=== PATIENT | male | born 1970 | race Caucasian/White ===

== ENCOUNTER 2016-11-06 15:16 | Outpatient (CLI) | payer OTHER | END 2016-11-06 15:17 | disposition home or self-care (01) | DX: G47.30 Sleep apnea, unspecified (principal); R06.83 Snoring; G47.10 Hypersomnia, unspecified ==

== ENCOUNTER 2016-11-12 19:28 | Outpatient (CLI) | payer OTHER | END 2016-11-12 19:29 | disposition home or self-care (01) | DX: G47.30 Sleep apnea, unspecified (principal) ==

== ENCOUNTER 2016-11-28 08:51 | Outpatient (CLI) | payer OTHER | END 2016-11-28 08:52 | disposition home or self-care (01) | DX: G47.33 Obstructive sleep apnea (adult) (pediatric) (principal) ==

== ENCOUNTER 2018-03-27 22:10 | Emergency (ER) | payer OTHER ==
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
[2018-03-27] MEDS ORDERED: LIDOCAINE 2% 10 ML MDV SUBQ STA (22:55)
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
[2018-03-28 01:54] VITALS: BP 130/85
== END 2018-03-28 01:35 | disposition home or self-care (01) ==
LOC: ED 22:10
DX: S62.306B Unspecified fracture of fifth metacarpal bone, right hand, initial encounter for open fracture (principal); W22.09XA Striking against other stationary object, initial encounter; Y92.009 Unspecified place in unspecified non-institutional (private) residence as the place of occurrence of the external cause; F17.200 Nicotine dependence, unspecified, uncomplicated
CPT/HCPCS: 12001; 99283; 99284

== ENCOUNTER 2018-03-29 10:07 | Emergency (ER) | payer OTHER ==
[2018-03-29 10:21] VITALS: BP 137/86
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
== END 2018-03-29 11:53 | disposition home or self-care (01) ==
LOC: ED 10:07
DX: S92.351A Displaced fracture of fifth metatarsal bone, right foot, initial encounter for closed fracture (principal); W22.09XA Striking against other stationary object, initial encounter; Z85.048 Personal history of other malignant neoplasm of rectum, rectosigmoid junction, and anus; Z87.891 Personal history of nicotine dependence
CPT/HCPCS: 29125; 99283

== ENCOUNTER 2018-11-18 15:45 | Emergency (ER) | payer OTHER ==
[2018-11-18 15:53] VITALS: BP 120/76
--- NOTE | 2018-11-18 16:40 | ED Physician Documentation ---
PD HPI LOWER EXT INJURY - Stated complaint Stated Complaint: R KNEE PX - Chief complaint Chief Complaint: Ext Problem - History obtained from History obtained from: Patient - History of Present Illness PD HPI LOW EXT INJURY LOCATION: Right (He had a surgical procedure on his right knee done in [place] 3 with ago. The follow-up plan was unclear and he presents with increased pain in the sutures need to come out.) Review of Systems Constitutional: reports: Reviewed and negative Throat: reports: Reviewed and negative Cardiac: reports: Reviewed and negative PD PAST MEDICAL HISTORY - Past Medical History Respiratory: Asthma - Past Surgical History Past Surgical History: Yes Ortho: Other - Present Medications Home Medications: Ambulatory Orders Medication Instructions Recorded Confirmed Albuterol [Ventolin Hfa] 2 puffs INH Q4H PRN 10/02/13 10/02/13 Esomeprazole Magnesium [Nexium] 40 mg PO DAILY 10/02/13 10/02/13 Fexofenadine [Mariposa] 180 mg PO DAILY 10/02/13 10/02/13 Montelukast Sodium [Singulair] 10 mg PO 10/02/13 10/02/13 Budesonide/Formoterol Fumarate 10.2 gm IH 11/18/18 [Symbicort 160-4.5 Mcg Inhaler] Cephalexin [Keflex] 500 mg PO Q6H #28 capsule 11/18/18 Fluticasone [Flonase] 1 sprays CLEMENT DAILY 11/18/18 11/18/18 Hydrocodone/Acetaminophen 1 - 2 each PO Q6H PRN #14 tablet 11/18/18 [Hydrocodon-Acetaminophen 5-325] - Allergies Allergies/Adverse Reactions: Allergies Allergy/AdvReac Type Severity Reaction Status Date / Time acetaminophen [From Tylenol] AdvReac Unknown Unknown Verified 03/27/18 22:23 aspirin AdvReac Unknown Unknown Verified 03/27/18 22:23 ibuprofen [From Motrin] AdvReac Unknown Unknown Verified 11/18/18 15:53 - Social History Does the pt smoke?: Yes Smoking Status: Former smoker Does the pt drink ETOH?: No Does the pt have substance abuse?: No - Immunizations Immunizations are current?: Yes - POLST Patient has POLST: No PD ED PE NORMAL - Vitals Vital signs reviewed: Yes - General General: Alert and oriented X 3, No acute distress - Extremities Extremities: Other (There is a surgical incision with a running Prolene suture to the posterior lateral right knee with very mild redness around the wound.) - Neuro Neuro: Alert and oriented X 3, Normal speech Results - Vitals Vitals: Vital Signs - 24 hr 11/18/18 15:50 Temperature 36.6 C Heart Rate 83 Respiratory 20 Rate Blood Pressure 120/76 O2 Saturation 95 Oxygen O2 Source Room air PD MEDICAL DECISION MAKING - ED course ED course: Sutures removed. It is a little infected. It was replaced with Steri-Strips and he is put on antibiotics and needed some pain killers. Departure - Departure Disposition: 01 Home, Self Care Clinical Impression: Surgical wound infection Condition: Good Record reviewed to determine appropriate education?: Yes Instructions: ED Wound Infec After Surgery Prescriptions: Cephalexin [Keflex] 500 mg PO Q6H #28 capsule Hydrocodone/Acetaminophen [Hydrocodon-Acetaminophen 5-325] 1 - 2 each PO Q6H PRN #14 tablet PRN Reason: pain Comments: Followup with the orthopedic surgeon [facility]. Return if worse, for fevers.
== END 2018-11-18 16:52 | disposition home or self-care (01) ==
LOC: ED 15:45
DX: T81.49XA Infection following a procedure, other surgical site, initial encounter (principal); Z87.891 Personal history of nicotine dependence
CPT/HCPCS: 99283

== ENCOUNTER 2022-04-19 14:36 | Outpatient (CLI) | payer OTHER ==
--- NOTE | 2022-04-19 16:44 | CT Report ---
PROCEDURE: Low Dose Lung Cancer Screen INDICATIONS: SMOKER TECHNIQUE: Noncontrast low-dose axial images were acquired from the pulmonary apices to the posterior costophren ic angles. Multiplanar MIP reformats were then reconstructed. For radiation dose reduction, the follo wing was used: automated exposure control, adjustment of mA and/or kV according to patient size. COMPARISON: None. FINDINGS: Image quality: Excellent. Lungs and pleura: Comparison scattered granulomas present throughout the patient's right lung. I see no evidence for focal infiltrate or pulmonary mass lesion. No significant emphysematous changes are seen. Mediastinum: Heart size is normal. No pericardial effusion. No mediastinal adenopathy by size crit eria. Thoracic aorta and central pulmonary arteries are normal in size. Esophagus is normal in itzel asif. No hiatal hernia. Bones and chest wall: No suspicious bony lesions. No vertebral body compression fractures. No axil jc or supraclavicular adenopathy by size criteria. The thyroid is normal in size and there are no incidental findings. Abdomen: Visualized upper abdomen solid organs and bowel loops appear normal in the absence of contr ast. IMPRESSION: 1. No focal pulmonary mass lesions identified. 2. Scattered granulomas noted throughout the patient's right lung. ) Reviewed by: Louis Palomares MD on 04/19/2022 4:43 PM PDT Approved by: Louis Palomares MD on 04/19/2022 4:43 PM PDT Station ID: [id number]
== END 2022-04-19 14:37 | disposition home or self-care (01) ==
LOC: DI 14:36
PROVIDERS: ATTEND Nurse Practitioner
DX: Z12.2 Encounter for screening for malignant neoplasm of respiratory organs (principal); F17.210 Nicotine dependence, cigarettes, uncomplicated; J84.10 Pulmonary fibrosis, unspecified

== ENCOUNTER 2022-06-25 18:52 | Emergency (ER) | payer OTHER ==
[2022-06-25 19:00] VITALS: BP 136/77
--- NOTE | 2022-06-25 19:19 | ED Physician Documentation ---
History of Present Illness - Stated complaint Stated Complaint: R KNEE SWELLING - Chief complaint Chief Complaint: Ext Problem - History obtained from History obtained from: Patient - History of Present Illness Timing: Today Pain level max: 5 Pain level now: 5 - Additonal information Additional information: Patient is a 52-year-old male who presents to the emergency department with right knee swelling. He states that this started today. He states that the pain is mainly on the anterior aspect of the knee. Has had a palpable patellar dislocation on this knee with surgery in the past. Worse with walking, better with rest. No fevers. No chills. No redness. Denies any trauma. Review of Systems Constitutional: denies: Fever, Chills GI: denies: Vomiting, Diarrhea Skin: denies: Rash PD PAST MEDICAL HISTORY - Past Medical History Respiratory: Asthma - Past Surgical History Past Surgical History: Yes Ortho: Other - Present Medications Home Medications: Ambulatory Orders Medication Instructions Recorded Confirmed Albuterol [Ventolin Hfa] 2 puffs INH Q4H PRN 10/02/13 10/02/13 Esomeprazole Magnesium [Nexium] 40 mg PO DAILY 10/02/13 10/02/13 Fexofenadine [Mariposa] 180 mg PO DAILY 10/02/13 10/02/13 Montelukast Sodium [Singulair] 10 mg PO 10/02/13 10/02/13 Budesonide/Formoterol Fumarate 10.2 gm IH 11/18/18 [Symbicort 160-4.5 Mcg Inhaler] Fluticasone [Flonase] 1 sprays CLEMENT DAILY 11/18/18 11/18/18 Hydrocodone/Acetaminophen 1 - 2 each PO Q6H PRN #14 tablet 11/18/18 [Hydrocodon-Acetaminophen 5-325] cephALEXin [Keflex] 500 mg PO Q6H #28 capsule 11/18/18 Oxycodone HCl [Roxicodone] 5 - 10 mg PO Q6H PRN #14 tablet 06/25/22 MDD 6 tabs predniSONE [Deltasone] 40 mg PO DAILY #10 tablet 06/25/22 - Allergies Allergies/Adverse Reactions: Allergies Allergy/AdvReac Type Severity Reaction Status Date / Time acetaminophen [From Tylenol] AdvReac Unknown Unknown Verified 06/25/22 19:00 aspirin AdvReac Unknown Unknown Verified 06/25/22 19:00 ibuprofen [From Motrin] AdvReac Unknown Unknown Verified 06/25/22 19:00 - Social History Does the pt smoke?: Yes Smoking Status: Former smoker Does the pt drink ETOH?: No Does the pt have substance abuse?: No - Immunizations Immunizations are current?: Yes - POLST Patient has POLST: No PD ED PE NORMAL - Vitals Vital signs reviewed: Yes - General General: Alert and oriented X 3, No acute distress - Neck Neck: Supple, no meningeal sign - Cardiac Cardiac: RRR, Strong equal pulses - Respiratory Respiratory: No respiratory distress, Clear bilaterally - Derm Derm: Warm and dry - Extremities Extremities: Other (R knee - Mild joint effusion/Prepatellar swelling. No bony tenderness. ACL, MCL, PCL, LCL are intact. Pain with meniscus testing. NVI) - Neuro Neuro: Alert and oriented X 3 - Psych Psych: Normal mood, Normal affect Results - Vitals Vitals: Vital Signs - 24 hr 06/25/22 18:57 Temperature 36.6 C Heart Rate 86 Respiratory 16 Rate Blood Pressure 136/77 H O2 Saturation 96 Oxygen O2 Source Room air - Rads (name of study) Right knee x-ray Radiology: Final report received, EMP read contemporaneously, See rad report PD MEDICAL DECISION MAKING - ED course Complexity details: reviewed results, re-evaluated patient, considered differential, d/w patient ED course: 52-year-old male with a large suprapatellar joint effusion with several possible loose bodies of uncertain etiology. He has not had any recent injuries but did have an injury that required surgery about 3 years ago. No prior films are available here. Placed an articulating knee brace. He is allergic to ibuprofen. We will prescribe pain medication for home. We will also trial him on steroids to see if this is potentially a bursitis versus possible meniscus injury. We will have him follow-up with orthopedics for further care. Patient counseled regarding signs and symptoms for which I believe and urgent re-evalu ation would be necessary. Patient with good understanding of and agreement to plan and is comfortable going home at this time This document was made in part using voice recognition software. While efforts are made to proofread this document, sound alike and grammatical errors may occur. No indication of septic joint. IMPRESSION: 1. Large suprapatellar joint effusion with several possible loose bodies of uncertain etiology near Hoffa's fat pad. 2. Consider MRI for more detail. Departure - Departure Disposition: 01 Home, Self Care Clinical Impression: Prepatellar bursitis, right knee Condition: Good Instructions: ED Bursitis Follow-Up: Tressa Valdez ARNP [Primary Care Provider] - Within 1 week Prescriptions: predniSONE [Deltasone] 40 mg PO DAILY #10 tablet Oxycodone HCl [Roxicodone] 5 - 10 mg PO Q6H PRN #14 tablet MDD 6 tabs PRN Reason: Pain Comments: Please follow-up with your doctor for further care. It appears that you have a prepatellar bursitis. You also appear to have foreign bodies in the fat pad around her knee, I do not have any old x-rays to do not know if this is new or old but you have not had any new injuries so I suspect this is old. You may bear weight as tolerated. Please follow-up with your doctor for further care. I am prescribing a short course of narcotic pain medication for you. These are potentially dangerous and addictive medications that should be used carefully. These medications may constipate you. Take an prpo-yny-aodnqzw stool softener (docusate) twice daily with plenty of water while taking these medications. If you go 24 hours without a bowel movement, take cyee-jub-qfvfjvi miralax, per package instructions. Do not drink or drive while taking these medications. If you received narcotic or sedating medications while in the emergency department, do not drive for 24 hours. Store this medication in a safe, secure place and out of reach of children. It is a violation of federal law to give or sell this medication to another person or to use in a manner other than prescribed. The ED will not refill narcotic prescriptions, including prescriptions lost or stolen. To dispose of unwanted medications: 1. [facility] at [address] in [place] has a medication drop box. They accept prescription medications (in pill form) Sunday through Sunday 9:00 a.m. to 5:00 p.m. 2. The [facility] accepts prescription medications (in pill form only) for disposal year round. Call for more info rmation. 3. Contact the [facility] for the next [facility] sponsored prescription drug collection event. , [phone], or [phone]; Discharge Date/Time: 06/25/22 20:49
--- NOTE | 2022-06-25 20:03 | XRAY Report ---
PROCEDURE: Knee 4 View RT INDICATIONS: knee pain, swelling, no trauma TECHNIQUE: 4 views of the right knee(s) were acquired. COMPARISON: None. FINDINGS: Bones: No fractures or dislocations. No suspicious bony lesions. Soft tissues: Large suprapatellar joint effusion. Several speckled densities, less dense than calciu m are present in the Hoffa's fat pad region. No chondrocalcinosis. IMPRESSION: 1. Large suprapatellar joint effusion with several possible loose bodies of uncertain etiology near H offa's fat pad. 2. Consider MRI for more detail. Reviewed by: Sheryl Mclean MD on 06/25/2022 8:01 PM PST Approved by: Sheryl Mclean MD on 06/25/2022 8:01 PM PST Station ID: [id number]
[2022-06-25] MEDS ORDERED: oxyCODONE 5 MG TABLET PO STA (20:22)
[2022-06-25] MEDS ORDERED: predniSONE 20 MG TABLET PO STA (20:27)
== END 2022-06-25 20:49 | disposition home or self-care (01) ==
LOC: ED 18:52
DX: M70.41 Prepatellar bursitis, right knee (principal); Z87.891 Personal history of nicotine dependence
CPT/HCPCS: 73564; 99282; 99283; A9270; J7512

== ENCOUNTER 2022-08-31 08:00 | Outpatient (CLI) | payer OTHER ==
--- NOTE | 2022-08-31 13:31 | XRAY Report ---
PROCEDURE: Knee 3 View RT INDICATIONS: RIGHT KNEE PAIN TECHNIQUE: 3 views of the right knee(s) were acquired. COMPARISON: Right knee radiographs 06/25/2022. FINDINGS: Bones: No fractures demonstrated. No dislocations. No suspicious bony lesions. Soft tissues: Small residual joint effusion. Trace opacity and Hoffa's fat pad, decreased. No suspic ious soft tissue calcifications. IMPRESSION: Small residual joint effusion. Decreased edema at Hoffa's fat pad. Reviewed by: Rashard Jo MD on 08/31/2022 1:30 PM PST Approved by: Rashard Jo MD on 08/31/2022 1:30 PM PST Station ID: [id number]
== END 2022-08-31 08:01 | disposition home or self-care (01) ==
LOC: DI.WOS 08:00
PROVIDERS: ATTEND Physician Assistant Surgical
DX: M25.561 Pain in right knee (principal); M25.461 Effusion, right knee